=== PATIENT | male | born 1970 | race Caucasian/White ===

== ENCOUNTER 2016-07-23 11:22 | Emergency (ER) | payer OTHER ==
[~2016-07-23 11:22] MED LIST: ASPIR 8181 MG PO; FENOFIBRATE160 MG PO; PROTONIX40 MG PO; SIMVASTATIN20 MG PO; ZOCOR20 MG PO
[2016-07-23 12:31] LABS: HEMOGLOBIN 12.5 gm/dl (14.0-17.5); RED BLOOD COUNT 4.64 M/UL (4.20-5.50); WHITE BLOOD COUNT 7.8 K/UL (4.5-11.0)
[2016-07-23 13:15] LABS: BUN/CREATININE RATIO 13 (0-10)
== END 2016-07-23 19:30 | disposition home or self-care (01) ==
LOC: ER1 11:22
PROVIDERS: Emergency Medicine
DX: R10.11 Right upper quadrant pain (principal); N50.811 Right testicular pain
CPT/HCPCS: 36415; 76870; 80053; 81001; 83690; 85025; 87086; 96361; 96374; 96375; 99284; J2270; J2405; J7050; Q9962

== ENCOUNTER 2020-09-15 20:08 | Emergency (ER) | payer OTHER ==
[~2020-09-15 20:08] MED LIST changes: +ASPIRIN325 MG PO; +CLOPIDOGREL75 MG PO; +FLEXERIL 10 MG10 MG PO; +HYGROTON TAB 2525 MG PO; +LIPITOR TAB 2020 MG PO; +MECLIZINE HCL25 MG PO; +MEDROL DOSEPAK 24 MG PO; +NORVASC10 MG PO; +PREDNISONE 50 M50 MG PO; +TESSALON PERLE100 MG PO; +VENTOLIN HFA 66.7 GM INH; +Voltaren Gel 1 % TOP
[2020-09-16 00:50] LABS: HEMOGLOBIN 12.1 gm/dl (14.0-17.5); RED BLOOD COUNT 4.6 M/UL (4.20-5.50); WHITE BLOOD COUNT 8.1 K/UL (4.5-11.0)
[2020-09-16 01:01] LABS: BUN/CREATININE RATIO 11 (0-10)
[2020-09-16] MEDS ORDERED: TYLENOL W/CODEIN1 EA PO (02:44)
== END 2020-09-16 03:05 | disposition home or self-care (01) ==
LOC: ER1 20:08
DX: K42.9 Umbilical hernia without obstruction or gangrene (principal); E66.9 Obesity, unspecified; Z86.73 Personal history of transient ischemic attack (TIA), and cerebral infarction without residual deficits; I10 Essential (primary) hypertension
CPT/HCPCS: 80053; 82550; 82553; 83690; 83874; 84484; 85025; 93005; 96374; 96375; 99284; J2270; J2405; Q9967

== ENCOUNTER → 2020-10-31 | Outpatient (CLI) | payer OTHER ==
[~2020-10-31] MED LIST changes: +TYLENOL W/CODEIN1 EA PO
== END ==
LOC: US 16:00
DX: M79.605 Pain in left leg (principal)
CPT/HCPCS: 93971

== ENCOUNTER → 2020-11-21 | Outpatient (CLI) | payer OTHER | LOC: KOH-I 14:28 | DX: M54.41 Lumbago with sciatica, right side (principal); M47.816 Spondylosis without myelopathy or radiculopathy, lumbar region | CPT/HCPCS: 72100 ==

== ENCOUNTER 2021-02-27 13:11 | Emergency (ER) | payer OTHER ==
[2021-02-27 13:47] LABS: HEMOGLOBIN 12.9 gm/dl (14.0-17.5); RED BLOOD COUNT 4.72 M/UL (4.20-5.50); WHITE BLOOD COUNT 8.1 K/UL (4.5-11.0)
[2021-02-27 15:28] LABS: BUN/CREATININE RATIO 9 (0-10)
== END 2021-02-27 16:33 | disposition home or self-care (01) ==
LOC: ER1 13:11
PROVIDERS: Preventive Medicine Occupational Medicine
DX: G43.109 Migraine with aura, not intractable, without status migrainosus (principal); R29.810 Facial weakness
CPT/HCPCS: 70450; 71045; 80053; 82550; 82553; 82962; 83874; 83880; 84484; 85025; 85610; 85652; 85730; 86140; 93005; 96374; 96375; 99285; J1200; J2550; J2765; J7030

== ENCOUNTER → 2021-09-17 | Outpatient (CLI) | payer OTHER | LOC: KOH-I 11:06 | DX: R60.0 Localized edema (principal) | CPT/HCPCS: 93971 ==

== ENCOUNTER → 2021-10-10 | Outpatient (CLI) | payer OTHER | LOC: SLEEP 10:00 | DX: G47.33 Obstructive sleep apnea (adult) (pediatric) (principal); I10 Essential (primary) hypertension; M51.36 Other intervertebral disc degeneration, lumbar region; M15.9 Polyosteoarthritis, unspecified | CPT/HCPCS: 95811 ==